=== PATIENT | male | born 1985 | race Caucasian/White ===

== ENCOUNTER 2024-10-09 16:34 | Emergency (ER) | payer OTHER, SELFPAY ==
[2024-10-09 16:35] VITALS: BP 146/84
[2024-10-09 17:20] VITALS: BMI 32.7
--- NOTE | 2024-10-09 18:05 | ED.GENMED ---
History of Present Illness
General
Chief Complaint: Skin Surface Trauma
Source: patient
Exam Limitations: none
Time Seen by Provider: 10/09/24 16:53
Nursing documentation reviewed up to this point in time: agreed with
History of Present Illness
History of Present Illness:
38-year-old male presenting to the emergency department today with concerns of left hand laceration that occurred while using a razor blade while doing gladis. Denies any numbness weakness or additional concerns.
Past History
Past History
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
ED Past Surgical History: Orthopedic
Social History
Tobacco: Non-smoker
Review of Systems
Review of Systems
Allergies reviewed?: Yes
All Other Systems: ROS reviewed and negative except as documented in HPI and ROS
Phy Exam
Physical Exam
Physical Exam:
GENERAL: Alert , in no apparent distress
EYE: pupils equal and reactive
NECK: Supple, no significant adenopathy.
ENT: o/p clr, mmm.
CARDIAC: Regular rate and rhythm .
LUNGS: Clear breath sounds bilaterally, no acute respiratory distress, no wheezes/rales/rhonchi
ABDOMEN: Soft, without focal tenderness, no r/g, no cvat
NEUROLOGICAL: Alert and oriented, no focal neuro deficits
SKIN: 2.5 cm laceration to the dorsal aspect of the hand between the first and second. Subcutaneous in depth no tendon involvement normal neurovascular examination. Warm and dry, skin intact.
MUSCULOSKELETAL: No edema, well perfused.
PSYCH: Normal and appropriate interaction.
Course
Orders/Labs/Results
Orders:
Orders
10/09/24 18:07
Tetanus/Diphth/Acelpertussis [Adacel] 0.5 ml IM .ONCE ONE
Vital Signs
Initial and Last Documented VS:
Initial Vital Signs
Temp Pulse Resp BP Pulse Ox
98.1 F 100 16 146/84 99
10/09/24 16:35 03/01/25 16:35 10/09/24 16:35 10/09/24 16:35 10/09/24 16:35
Last Documented Vital Signs
Temp Pulse Resp BP Pulse Ox
98.1 F 100 16 146/84 99
10/09/24 16:35 10/09/24 16:35 10/09/24 16:35 10/09/24 16:35 10/09/24 16:35
Procedures
Laceration Closure
Left Dorsal Hand:
Status of Wound: clean
Size of Wound in cm: 2.5
Description of Wound Edges: sharp
Preparation: cleaned with saline
Anesthesia: 1% Lidocaine with epi
Revision/Debridement: routine- no revision
Wound exploration: explored to base- no FB
Type of Closure: single layer closure
Skin Closure Material: 4-0 nylon
Number of sutures: 5
MDM/Problems Addressed
MDM/Problems Addressed:
38-year-old male presenting to the emergency department today with concerns of a laceration to his left hand. This was cleaned thoroughly and closed with 5 not dissolving stitches. No tendon involvement no bone involvement no foreign body seen low
risk for infection stable for outpatient follow-up return precautions given.
*Critical Care Note
Total Time (30-74mins, 75-104mins- exclusive of procedures): Not Applicable
ED Attending Note
-
Portions of this chart may have been created with voice recognition software.� Occasional wrong word or��sound alike� substitutions may have occurred due to the inherent limitations of voice recognition software.
Discharge Plan
Departure
Patient Disposition: Home (Routine Discharge)
Date of Disposition: 10/09/24
Time of Disposition: 18:06
Patient with high blood pressure during this ER visit?: No
Condition: Good
Covid-19: Not Applicable
Discharge Problem:
Hand laceration
Instructions: Laceration Repair With Stitches (DC)
Referrals:
Usman Denise PA-C [Family Provider] -
Activity Restrictions/Additional Instructions:
You came to the emergency department today with concerns of a laceration to your left hand. This was closed with 5 total stitches. Please keep the area clean covered and have the stitches removed in 14 days. Return for any worsening, new or
concerning symptoms.
Interventions
Interventions:
*Risk Screen - Suicide Last Done: 10/09/24 17:21
*General Assessment Last Done: 10/09/24 17:21
*Neglect/Abuse Screening Last Done: 10/09/24 17:21
*ED COVID-19 Vaccine History Last Done: 10/09/24 17:21
*Nursing Disposition Last Done: 10/09/24 18:17
ED-Skin Assessment Last Done: 10/09/24 17:22
Discharge Date and Time
Print Language: YAKUT
[2024-10-09] MEDS: ADACEL 0.5 ML IM (18:12)
== END 2024-10-09 18:17 | disposition home or self-care (01) ==
LOC: EMR 16:34
PROVIDERS: EMERGENCY PHYSICIAN Student in an Organized Health Care Education/Training Program; FAMILY PHYSICIAN Physician Assistant Medical
DX: S61.412A Laceration without foreign body of left hand, initial encounter (principal); W27.8XXA Contact with other nonpowered hand tool, initial encounter; Z23 Encounter for immunization
CPT/HCPCS: 12001; 90471; 99282; 90715

== ENCOUNTER 2025-03-16 08:53 | Emergency (ER) | payer OTHER, SELFPAY ==
[2025-03-16 08:55] VITALS: BP 122/100
--- NOTE | 2025-03-16 09:38 | ED.GENMED ---
History of Present Illness
General
Chief Complaint: Back Pain
Time Seen by Provider: 03/16/25 09:26
History of Present Illness
History of Present Illness:
PAST MEDICAL HISTORY AND REVIEW OF OLD RECORDS
- The patient has history of ankylosing spondylitis. I reviewed records, the patient was seen by Dr. Johnson in the past related to carpal tunnel syndrome.
Note:
CHIEF COMPLAINT(S)
Lower back pain with radiation down the left leg and numbness in the toes and foot.
HISTORY OF PRESENT ILLNESS
The patient is a 39-year-old male with a history of ankylosing spondylitis presenting with a flare-up of symptoms over the past few weeks. He reports chronic lower back pain, which has been exacerbated in recent days. The patient describes the pain
as persistent with episodes of severe exacerbation. He has been experiencing numbness in the toes and foot of the left leg for the past three weeks. The patient notes a history of intermittent lower back pain over the past five years, which has been
managed with Humira. He was switched off Humira due to insurance coverage issues earlier this year, which led to a return of symptoms, prompting his french folding machine operator to restart Humira four months ago. Despite returning to Humira, the lower back pain
persisted, and the recent onset of left leg symptoms has been particularly troubling.
The patient denies any trauma and has been seeing his french folding machine operator for approximately four and a half years. He reports that physical examinations at another facility revealed bone spurs impacting discs and nerves, contributing to his symptoms. The
patient has trialed prednisone and a Medrol dose pack with limited relief. He also reports trialing flexeril with minimal impact on his symptoms.
A recent vacation exacerbated his symptoms, leading to a request for referral to a physical therapist or osteopath. However, it remains unresolved. Pain management options discussed included a consideration of anti-inflammatory injections and
gabapentin for neuropathic pain relief, and the patient expressed a preference to avoid narcotics.
The patient reports no bowel or bladder incontinence but expresses concern about bowel movements.
ADDITIONAL HISTORY OBTAINED FROM SOURCES OTHER THAN THE PATIENT
The patient notes advice and prescriptions from his french folding machine operator, who manages his ankylosing spondylitis, including the re-initiation of Humira and providing a referral for an MRI. Radiographic studies, such as X-rays, revealed bone spurs,
according to the patient.
REVIEW OF SYSTEMS
- Musculoskeletal: Chronic lower back pain with exacerbation. History of ankylosing spondylitis.
- Neurological: Numbness reported in left toes and foot.
- Gastrointestinal: No bowel movement reported since early week. No bowel incontinence.
- Urological: No bladder incontinence or retention, awaiting confirmation via bladder scan.
PHYSICAL EXAM
General: Alert, but appears uncomfortable, currently sitting in a prone position with flexion at the hips and knees on the stretcher
Skin: Warm, dry.
Head: Normocephalic, atraumatic.
Neck: Supple, trachea midline.
Eye, ears, nose, mouth, and throat: Oral mucosa moist.
Cardiovascular: Normal peripheral perfusion, no edema.
Respiratory: Respirations are non-labored.
Gastrointestinal: Abdomen nondistended.
Back: There is no midline L-spine tenderness but there is decreased active range of motion due to
Musculoskeletal: Normal range of motion, normal strength.
Neurological: Good distal right lower extremity strength, no signs of focal neurological deficits noted. Able to feel tactile stimulation, but reports pain.
Psychiatric: Cooperative, appropriate mood and affect.
PROBLEM LIST
- Acute:
- Lower back pain
- Sciatica symptoms
- Numbness in left leg
- Chronic:
- Ankylosing spondylitis
PLAN
- Administer Toradol injection for inflammation and pain management.
- Initiate treatment with gabapentin for neuropathic pain relief.
- Conduct bladder scan post-urination to assess any potential urinary retention.
- Recommendation to pursue MRI, as scheduled, through french folding machine operator Referrals to local spine specialists provided for further evaluation and management.
- Discussed avoidance of narcotic analgesics due to potential for addiction and only symptomatic relief.
DIFFERENTIAL DIAGNOSIS
The Differential Diagnosis includes, in no particular order and is not limited to:
- Sciatica
- Herniated disc
- Ankylosing spondylitis flare
- Nerve root compression
- Spinal stenosis
- Lumbar radiculopathy
- Spondylolisthesis
- Osteoarthritis of the spine
- Neuropathy
- Muscular strain
---
This detailed and structured patient note accurately reflects the conversation with the patient, ensuring consistency with the presented findings and treatment considerations.
SUMMARY OF ENCOUNTER
The patient presented to the emergency department due to exacerbation of chronic pain associated with ankylosing spondylitis, specifically lower back pain radiating down the left leg, leading to numbness in the toes and foot. Recent efforts to
manage his symptoms included prior use of Humira and prednisone with limited results. During the visit, there was no evidence of a neurosurgical emergency, so the primary focus was on managing pain and neuropathic symptoms. The patient expressed
concern over the persistence of his symptoms despite ongoing management. A Toradol (ketorolac tromethamine) injection was administered for acute pain relief. A prescription for gabapentin was generated for longer-term neuropathic pain management.
Further, it was advised to continue prednisone as it can help some patients feel relief from inflammation.
DISPOSITION
Discharge
ASSESSMENT
The patient is suffering from a flare-up related to ankylosing spondylitis with associated sciatica symptoms affecting the left leg, causing numbness.
EMERGENCY TREATMENTS ADMINISTERED
One dose of Toradol (ketorolac tromethamine) injection for acute pain relief was administered in the emergency department.
PLAN
The plan included prescribing gabapentin to help with neuropathic pain and recommending the continuation of prednisone, which may aid in managing inflammation-related symptoms. The patient was instructed to follow up with Dr. Fernandes of [facility] to explore potential interventions more urgently, leveraging the communication between the ER doctor and Dr. Fernandes to facilitate a faster appointment. Additionally, the patient was advised to proceed with the MRI scheduled for the of
the month to further evaluate the underlying causes of his symptoms.
PATIENT EDUCATION AND COUNSELING
The patient was educated about the importance of continuing prednisone as it may provide some with symptom relief. The potential benefits of gabapentin were discussed, highlighting its different mechanism of action compared to muscle relaxants like
cyclobenzaprine (Flexeril), baclofen, or tizanidine which the patient may also be using. The patient was counseled that despite their marketed purpose, these muscle relaxants do not always effectively relieve muscle tension and may not significantly
address his underlying neurological symptoms. It was emphasized to reach out to Dr. Jonas office for quicker scheduling of an appointment.
FOLLOW-UP INSTRUCTIONS
- Contact Dr. Lechuga office of [facility] to communicate the urgency of the follow-up, referencing the ER visit.
- Proceed with the MRI scheduled on the to investigate the condition further.
- Continuation of prescribed medications including prednisone and the newly prescribed gabapentin.
- Monitor symptoms and follow up with the french folding machine operator as per regular schedule for ankylosing spondylitis management.
MEDICATION RECONCILIATION
- Toradol (ketorolac tromethamine) injection administered during ED visit.
- Prescription for gabapentin was sent to the patients pharmacy for neuropathic pain relief.
- Advise continuation of prednisone as previously discussed.
MEDICAL DECISION MAKING
1. Number and Complexity of Problems Addressed:
Chronic conditions affecting care include ankylosing spondylitis, sciatica symptoms, and related neuropathic pain.
2. Data:
Category 1
- Reviewed previous external notes and imaging from french folding machine operator.
- Clinical information included recent flares of ankylosing spondylitis and symptoms of numbness correlating with sciatica.
Category 2
- Conducted independent review of external radiographic studies which revealed bone spurs previously impacting discs and nerves, confirming the patient�s account.
Category 3
- Spoke with Dr. Fernandes to facilitate expedited follow-up care with the medicare contact specialist given patients current condition.
3. Risk:
Prescription drug management includes administering ketorolac and prescribing gabapentin, with a recommendation to continue prednisone, though monitoring for potential side effects should remain in focus. Consideration of further imaging (MRI) to
assess spinal involvement in symptomatology. Discharge discretion exercised due to stable vital signs, patient�s ability to manage pain with prescribed medications, and appropriate follow-up plan with specialists in place.
DIAGNOSIS
- Low back pain with sciatica (M54.40)
- Ankylosing spondylitis (M45.9)
- Neuropathy (M79.2)
UPDATE
-I communicated with orthopedics, Dr. Fernandes and agrees with close outpatient follow-up
- He was given IM Toradol and started on gabapentin. There may be some slight improvement. His bladder scan showed only 10 mL of urine. He has excellent strength in the lower extremities, no clear indication for emergent MRI at this time.
Past History
Past History
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
ED Past Surgical History: Orthopedic
Social History
Tobacco: Non-smoker
Phy Exam
Physical Exam
Physical Exam:
See HPI
Course
Orders/Labs/Results
Orders:
Orders
03/16/25 09:36
Bladder Scan- Treatment ONCE
Gabapentin [Neurontin] 300 mg PO NOW STA
Ketorolac [Toradol] 30 mg IM NOW STA
Vital Signs
Initial and Last Documented VS:
Initial Vital Signs
Temp Pulse Resp BP Pulse Ox
36.6 C 99 20 122/100 100
03/16/25 08:55 03/16/25 08:55 03/16/25 08:55 03/16/25 08:55 03/16/25 08:55
Last Documented Vital Signs
Temp Pulse Resp BP Pulse Ox
36.6 C 99 20 122/100 100
03/16/25 08:55 03/16/25 08:55 03/16/25 08:55 03/16/25 08:55 03/16/25 09:40
*Pulse Oximetry
SaO2: 100
Patient hypoxic: no
*Critical Care Note
Total Time (30-74mins, 75-104mins- exclusive of procedures): Not Applicable
ED Attending Note
-
Portions of this chart may have been created with voice recognition software.� Occasional wrong word or��sound alike� substitutions may have occurred due to the inherent limitations of voice recognition software.
Discharge Plan
Departure
Patient Disposition: Home (Routine Discharge)
Date of Disposition: 03/16/25
Time of Disposition: 11:52
Patient with high blood pressure during this ER visit?: Yes
Discharge Problem:
Sciatica
Instructions: Sciatica (DC), BLOOD PRESSURE
Prescriptions:
New
gabapentin 300 mg capsule
300 mg PO TID PRN (Reason: pain) Qty: 21 0RF
Referrals:
Isiah Fernandes MD [Active, Orthopedics]
Usman Denise PA-C [Family Provider, Family Practice]
Activity Restrictions/Additional Instructions:
I did speak to Dr. Fernandes. I recommend you try calling their office to help arrange close follow-up especially since he saw Dr. Crandall in the past. I am sending a prescription for gabapentin to your pharmacy. I recommend to continue the steroids.
You can take the muscle relaxers only if you feel that they are helping.
Interventions
Interventions:
*General Assessment Last Done: 03/16/25 10:28
*Neglect/Abuse Screening Last Done: 03/16/25 10:28
*ED- Fall Risk Assessment Last Done: 03/16/25 10:28
*ED COVID-19 Vaccine History Last Done: 03/16/25 10:28
ED-Musculoskeletal Assessment Last Done: 03/16/25 10:28
Discharge Date and Time
Print Language: SPANISH
[2025-03-16] MEDS: TORADOL 30 MG IM (10:26)
[2025-03-16] MEDS: NEURONTIN 300 MG PO (10:26)
[2025-03-16 12:04] VITALS: BP 116/87
== END 2025-03-16 12:05 | disposition home or self-care (01) ==
LOC: EMR 08:53
PROVIDERS: EMERGENCY PHYSICIAN Emergency Medicine; FAMILY PHYSICIAN Physician Assistant Medical
DX: M54.42 Lumbago with sciatica, left side (principal); G62.9 Polyneuropathy, unspecified; M45.9 Ankylosing spondylitis of unspecified sites in spine
CPT/HCPCS: 96372; 99284